=== PATIENT | female | born 1940 | race Caucasian/White ===

== ENCOUNTER 2020-08-19 23:18 | Inpatient (IN) ==
[2020-08-19] MEDS ORDERED: MELATONIN 3 MG TABLET PO PRN (23:24)
[2020-08-19] MEDS ORDERED: POLYETHYLENE GLYCOL 3350 17 GM PACKET PO PRN (23:24)
[2020-08-19] MEDS ORDERED: ACETAMINOPHEN 325 MG TABLET PO PRN (23:24)
[2020-08-19] MEDS ORDERED: ONDANSETRON 4 MG ODT TABLET SL PRN (23:24)
[2020-08-19] MEDS ORDERED: POTASSIUM CHLORIDE 40 MEQ in DEXTROSE 5% IN WATER 500 ML IV PRN (23:24)
[2020-08-19] MEDS ORDERED: DEXTROSE 50% 50 ML VIAL IV PRN (23:24)
[2020-08-19] MEDS ORDERED: ACETAMINOPHEN 650 MG/65 ML BOTTLE IV PRN (23:24)
[2020-08-19] MEDS ORDERED: BISACODYL 10 MG SUPP.RECT PR PRN (23:24)
[2020-08-19] MEDS ORDERED: DEXTROSE 31 GM ORAL.SUSP PO PRN (23:24)
[2020-08-19] MEDS ORDERED: ONDANSETRON 4 MG/2 ML VIAL IV PRN (23:24)
[2020-08-19] MEDS ORDERED: MAGNESIUM SULFATE 2 GM/50 ML BAG IV PRN (23:24)
--- NOTE | 2020-08-19 23:28 | Internal Med History&Physical ---
HPI History of Present Illness Patient information: Note initiated : 08/19/20 at 11:28 pm Service Date, if different from initiated Date: [] Patient: Danyelle Boston a 79 y/o F admitted on for Blood sugar problems. Chief Complaint: Elevated blood sugars History of present illness: Ms. Boston is a 79 year old F with a history of diabetes/recent Covid pneumonia/dementia/HTN status post remdesivir treatment at [facility]. Patient was transferred to residential home at [place] and was found to have elevated blood sugars. Apparently she ran out of Insulin that led to elevated BG. She was evaluated at [facility], work-up was consistent with hyperosmolar diabetic nonketotic state with blood sugars over 700 and calculated serum osmolarity in excess of 350. Patient was started on insulin subsequently hospitalist service at [facility] was consulted due to lack of availability of beds at [facility]. Patient was accepted Received in stable state. Patient has a baseline cognitive dysfunction/dementia. On arrival she is awake but disoriented. Unable to provide any meaningful history. Most history was obtained from review of medical records and from ER physician Dr. Jose Triplett at [facility] Reviewed labs/documentation that was sent along with patient from [place]. Review of systems 10 point review system was attempted but could not performed Past medical history Dementia Recent Covid pneumonia Hypertension DM type II Hyperlipidemia Anxiety disorder Social history Resides at a care facility [place] No history of smoking PFSH PFS Social History smoking status: Unknown if ever smoked MEDS/ALLERGIES Home Medications and Allergies Home Medications Medication Instructions Recorded Confirmed Type Accu-Chek Safe-T-Pro Plus 08/20/20 08/20/20 History Fleet Enema 118 ml TN PRN PRN 08/20/20 08/20/20 History GlucaGen HypoKit 1 mg SUBCUT QIDP PRN 08/20/20 08/20/20 History Levemir U-100 Insulin 35 unit SUBCUT DAILY 08/20/20 08/20/20 History acetaminophen 650 mg PO Q4H PRN 08/20/20 08/20/20 History alum-mag hydroxide-simeth [Maalox 20 ml PO Q4HP PRN 08/20/20 08/20/20 History Advanced] amlodipine 10 mg PO DAILY 08/20/20 08/20/20 History bisacodyl 10 mg TN QDAY PRN 08/20/20 08/20/20 History escitalopram oxalate 20 mg PO DAILY 08/20/20 08/20/20 History insulin lispro [Humalog U-100 See Protocol SUBCUT ACHS #10 ml 08/20/20 Rx Insulin] loperamide [Imodium A-D] 2 mg PO QID PRN 08/20/20 08/20/20 History memantine 10 mg PO BIDCC 08/20/20 08/20/20 History mupirocin 1 applic TOPICAL QIDP PRN 08/20/20 08/20/20 History ramipril [Altace] 10 mg PO QDAY 08/20/20 08/20/20 History simvastatin 10 mg PO HS 08/20/20 08/20/20 History Allergies Allergy/AdvReac Type Severity Reaction Status Date / Time No Known Drug Allergies Allergy Unverified 08/20/20 01:55 EXAM Constitutional Vitals: Incoherent Head normocephalic Oral cavity moist No ear nose discharge Eye movement symmetrical Neck supple no lymphadenopathy S1-S2 occasionally irregular Nonlabored breathing Nondistended nontender abdomen Lower extremity no cyanosis clubbing or joint swelling Skin no suspicious lesion Psych confused and anxious Neuro moving all 4 extremities A/P Narrative A/P Narrative: * Diabetic nonketotic hyperosmolar state with blood sugars over 700. initially treated on insulin bolus/drip at [facility] along with crystalloids. By time patient arrived blood sugars down to 350. Patient will transition to basal prandial insulin/CC diet along with continued crystalloids. * History of hypertension continue midodrine/LORE inhibitor * Volume depletion encourage p.o. fluids. Crystalloids. * Hyperlipidemia continue statin * Anxiety disorder discontinue escitalopram * History of dementia at baseline * Prophylaxis heparin Plan * Inpatient admission * Aggressive blood sugar management * Pre-existing medical mission management as above * delirium watch/dementia care/fall watch * PT OT/nutrition support * Discharge planning Time Spent With Patient Time: Total time spent is greater than 50% in coordination of care (as documented) at patient's floor/unit and/or counseling patient:
[2020-08-19] MEDS ORDERED: 0.9 % SODIUM CHLORIDE 1,000 ML IV SCH (23:30)
[2020-08-20] MEDS: 0.9 % SODIUM CHLORIDE 10 ML SYRINGE IV SCH ×2 (05:48→13:34)
[2020-08-20] MEDS: INSULIN LISPRO 1 UNIT/0.01 ML UNIT SQ SCH ×2 (06:35→10:54)
[2020-08-20] MEDS ORDERED: MAG HYDROX/AL HYDROX/SIMETH 30 ML ORAL.SUSP PO PRN (08:48)
[2020-08-20] MEDS ORDERED: BISACODYL 10 MG SUPP.RECT PR PRN (08:48)
[2020-08-20] MEDS ORDERED: FLEETS ADULT ENEMA PR PRN (08:48)
[2020-08-20] MEDS ORDERED: MUPIROCIN OINT 2% 22GM TOPICAL PRN (08:48)
[2020-08-20] MEDS ORDERED: HEPARIN 5,000 UNIT/ML VIAL SQ SCH (09:00)
[2020-08-20] MEDS ORDERED: ESCITALOPRAM 20 MG TABLET PO SCH (09:00)
[2020-08-20] MEDS ORDERED: MULTIVIT,THER IRON,CA,FA & MIN 1 TABLET PO SCH (09:00)
[2020-08-20] MEDS ORDERED: DOCUSATE SODIUM 100 MG CAPSULE PO SCH (09:00)
[2020-08-20] MEDS ORDERED: sitaGLIPtin 100 MG TABLET PO SCH (09:00)
[2020-08-20] MEDS ORDERED: LISINOPRIL 20 MG TABLET PO SCH (09:00)
[2020-08-20] MEDS ORDERED: INSULIN GLARGINE, HUMAN 1 UNIT/0.01 ML SQ SCH (09:00)
[2020-08-20] MEDS ORDERED: LOPERAMIDE 2 MG CAPSULE PO PRN (09:21)
[2020-08-20] MEDS ORDERED: ACETAMINOPHEN 325 MG TABLET PO PRN (09:22)
[2020-08-20] MEDS ORDERED: GLUCAGON,HUMAN RECOMBINANT 1 MG VIAL IV PRN (09:25)
[2020-08-20 10:37] LABS: Basophils # (Auto) 0.03 K/mcL (0.00-0.20); Basophils % (Auto) 0.3 % (0.0-2.0); Eosinophils # (Auto) 0.15 K/mcL (0.00-0.70); Eosinophils % (Auto) 1.7 % (0.0-7.0); Hematocrit 39.6 % (36.0-48.0); Lymphocytes # (Auto) 1.69 K/mcL (1.50-4.80); Mean Cell Volume 92.1 fL (80.0-100.0); Mean Corpuscular HGB Conc 32.8 g/dL (31.0-36.0); Mean Platelet Volume 11.1 fL (7.4-10.4); Monocytes # (Auto) 0.76 K/mcL (0.10-0.90); Monocytes % (Auto) 8.6 % (1.0-12.0); Neutrophils % (Auto) 70.4 % (38.0-78.0); Platelet Count 252 K/mcL (140-440); Red Cell Distribution Width 13.4 % (11.5-14.5); WBC 8.9 K/mcL (4.5-11.0)
[2020-08-20 10:50] LABS: ALT/SGPT 32 U/L (<40); AST/SGOT 20 U/L (<32); Albumin 2.8 gm/dL (3.2-5.2); Albumin/Globulin Ratio 0.8 (1.0-2.3); Alkaline Phosphatase 113 U/L (39-117); Bilirubin,Direct < 0.2 mg/dL (<0.3); Bilirubin,Total 0.6 mg/dL (0.1-1.0); Blood Urea Nitrogen 44 mg/dL (8-23); Calcium 8.8 mg/dL (8.6-10.4); Carbon Dioxide 20 mmol/L (22-30); Chloride 114 mmol/L (96-108); Globulin 3.6 gm/dL (2.2-3.7); Glomerular Filtration Rate 48; Glucose 159 mg/dL (70-105); Lactate Dehydrogenase 291 U/L (135-225); Phosphorous 3.1 mg/dL (2.5-4.5); Triglycerides 77 mg/dL (<150); Uric Acid 5.5 mg/dL (2.5-8.0)
--- NOTE | 2020-08-20 13:44 | Discharge Summary ---
Discharge Provider Provider Patient information: Note initiated : 08/20/20 at 1:43 pm Service Date, if different from initiated Date: [] Patient: Danyelle Boston 79 y/o F admitted on 08/20/20 for Blood Sugar Problems. Chief Complaint: Weakness/elevated blood sugars Discharge diagnosis Diabetic hyperosmolar nonketotic state -managed per protocol Hospital course- patient demonstrated dramatic improvement over 12 hours with crystalloid/insulin with resultant normalization of biochemical profile/blood sugars. Patient is now at baseline. Discharging back to [facility]. Continue outpatient follow-up with primary care physician/diabetes optimization/sliding- scale insulin CC diet. Date of admission: 08/20/20 00:25 Discharge date: 08/20/20 Primary care physician: Raquel Gordon, Discharge Meds Discharge Medications Home Medications Accu-Chek Safe-T-Pro Plus 08/20/20 [History Confirmed 08/20/20 Last Taken Unknown] Fleet Enema 118 ml ND PRN PRN 08/20/20 [History Confirmed 08/20/20 Last Taken Unknown] GlucaGen HypoKit 1 mg SUBCUT QIDP PRN 08/20/20 [History Confirmed 08/20/20 Last Taken Unknown] Levemir U-100 Insulin 35 unit SUBCUT DAILY 08/20/20 [History Confirmed 08/20/20 Last Taken 08/19/20 09:00] acetaminophen 650 mg PO Q4H PRN 08/20/20 [History Confirmed 08/20/20 Last Taken Unknown] alum-mag hydroxide-simeth [Maalox Advanced] 20 ml PO Q4HP PRN 08/20/20 [History Confirmed 08/20/20 Last Taken Unknown] amlodipine 10 mg PO DAILY 08/20/20 [History Confirmed 08/20/20 Last Taken 08/19/20 09:00] bisacodyl 10 mg ND QDAY PRN 08/20/20 [History Confirmed 08/20/20 Last Taken Unknown] escitalopram oxalate 20 mg PO DAILY 08/20/20 [History Confirmed 08/20/20 Last Taken 08/19/20 09:00] insulin lispro [Humalog U-100 Insulin] See Protocol SUBCUT ACHS #10 ml 08/20/20 [Rx Last Taken Unknown] loperamide [Imodium A-D] 2 mg PO QID PRN 08/20/20 [History Confirmed 08/20/20 Last Taken Unknown] memantine 10 mg PO BIDCC 08/20/20 [History Confirmed 08/20/20 Last Taken 08/19/20 08:00] mupirocin 1 applic TOPICAL QIDP PRN 08/20/20 [History Confirmed 08/20/20 Last Taken Unknown] ramipril [Altace] 10 mg PO QDAY 08/20/20 [History Confirmed 08/20/20 Last Taken 08/19/20 08:00] simvastatin 10 mg PO HS 08/20/20 [History Confirmed 08/20/20 Last Taken 08/18/20] COURSE Hospital Course Hospital course: . Discharge diagnosis: . Time Spent with Patient Time attestation: Total time spent providing and/or coordinating discharge services: EXAM Constitutional Vitals: Temp Pulse Resp BP Pulse Ox 98.9 F 76 16 150/76 98 08/20/20 12:00 08/20/20 12:00 08/20/20 12:00 08/20/20 12:00 08/20/20 12:00 Discharge Data Data Completed and Pending Labs on day of discharge: Labs from last 24 hours 08/20/20 08/20/20 08/20/20 09:49 09:49 09:45 WBC 8.9 RBC 4.30 Hgb 13.0 Hct 39.6 MCV 92.1 MCH 30.2 MCHC 32.8 RDW 13.4 Plt Count 252 MPV 11.1 H Neut % (Auto) 70.4 Lymph % (Auto) 19.0 [place] % (Auto) 8.6 Eos % (Auto) 1.7 Baso % (Auto) 0.3 Lymph # (Auto) 1.69 [place] # (Auto) 0.76 Eos # (Auto) 0.15 Baso # (Auto) 0.03 Seg Neutrophils % Band Neutrophils % Lymphocytes % Absolute Neutrophils 6.25 Reactive Lymphocytes Platelet Estimate RBC Morphology Sodium 145 Potassium 4.5 Chloride 114 H Carbon Dioxide 20 L Anion Gap 11.0 BUN 44 H Creatinine 1.1 GFR Calculation 48 Glucose 159 H Osmolality 323 H Uric Acid 5.5 Calcium 8.8 Phosphorus 3.1 Magnesium 2.1 Total Bilirubin 0.6 Direct Bilirubin < 0.2 GGT 43 H AST 20 ALT 32 Alkaline Phosphatase 113 Lactate Dehydrogenase 291 H Total Protein 6.4 Albumin 2.8 L Globulin 3.6 Albumin/Globulin Ratio 0.8 L Triglycerides 77 08/20/20 08/20/20 05:03 05:03 WBC TNP RBC TNP Hgb TNP Hct TNP MCV TNP MCH TNP MCHC TNP RDW TNP Plt Count TNP MPV TNP Neut % (Auto) Lymph % (Auto) [place] % (Auto) Eos % (Auto) Baso % (Auto) Lymph # (Auto) [place] # (Auto) Eos # (Auto) Baso # (Auto) Seg Neutrophils % TNP Band Neutrophils % TNP Lymphocytes % TNP Absolute Neutrophils Reactive Lymphocytes TNP Platelet Estimate TNP RBC Morphology TNP Sodium TNP Potassium TNP Chloride TNP Carbon Dioxide TNP Anion Gap TNP BUN TNP Creatinine TNP GFR Calculation TNP Glucose TNP Osmolality Uric Acid TNP Calcium TNP Phosphorus TNP Magnesium TNP Total Bilirubin TNP Direct Bilirubin Pending GGT TNP AST TNP ALT TNP Alkaline Phosphatase TNP Lactate Dehydrogenase TNP Total Protein TNP Albumin TNP Globulin TNP Albumin/Globulin Ratio TNP Triglycerides TNP Discharge Plan Patient/Caregiver Discharge Instructions Activity: increase activity as tolerated Diet: Consistent Carbohydrate Activity Restrictions/Additional Instructions: PCP in 5 days Continue sliding-scale insulin/detemir Encourage p.o. fluids Dementia care/fall watch Covid contact cautions Prescriptions: New insulin lispro [Humalog U-100 Insulin] 100 unit/mL Solution See Protocol unit SUBCUT ACHS Qty: 10 RF: 0 Continued amlodipine 5 mg tablet 10 mg PO DAILY RF: 0 (DME) Accu-Chek Safe-T-Pro Plus 23 gauge misc MISCELLANEOUS RF: 0 acetaminophen 325 mg Tablet 650 mg PO Q4H PRN (Reason: pain/fever) RF: 0 loperamide [Imodium A-D] 2 mg Tablet 2 mg PO QID PRN (Reason: Diarrhea) RF: 0 bisacodyl 10 mg Suppository 10 mg ND QDAY PRN (Reason: Constipation) RF: 0 simvastatin 20 mg tablet 10 mg PO HS RF: 0 Fleet Enema 19-7 gram/118 mL Enema 118 ml ND PRN PRN (Reason: Constipation) RF: 0 GlucaGen HypoKit 1 mg Recon Soln 1 mg SUBCUT QIDP PRN (Reason: Hypoglycemia) RF: 0 alum-mag hydroxide-simeth [Maalox Advanced] 200-200-20 mg/5 mL Suspension 20 ml PO Q4HP PRN (Reason: Indigestion) RF: 0 escitalopram oxalate 20 mg tablet 20 mg PO DAILY RF: 0 memantine 10 mg tablet 10 mg PO BIDCC RF: 0 Levemir U-100 Insulin 100 unit/mL solution 35 unit SUBCUT DAILY RF: 0 mupirocin 2 % Ointment 1 applic TOPICAL QIDP PRN (Reason: Wound Care) RF: 0 ramipril [Altace] 10 mg capsule 10 mg PO QDAY RF: 0 Follow Up Plan Patient Disposition: Xfer SNF Rehab Potential: Fair I certify that the patient requires SNF services: Yes Overall status at discharge: patient is progressing back to baseline Discharge Orders: Discharge Order (Routine); Ordered 08/20/20 Ordered By: Wes Gonzalez
[2020-08-20] MEDS ORDERED: MEMANTINE 10 MG TABLET PO SCH (17:30)
[2020-08-20] MEDS ORDERED: SENNOSIDES/DOCUSATE SODIUM 1 TAB TABLET PO SCH (21:00)
[2020-08-20] MEDS ORDERED: SIMVASTATIN 10 MG TABLET PO SCH (21:00)
[2020-08-21] MEDS ORDERED: amLODIPine 10 MG TABLET PO SCH (09:00)
== END 2020-08-20 15:00 | DRG 639 ==
LOC: MEDSUR 08-20 00:25
PROVIDERS: ADMIT Internal Medicine; ATTEND Internal Medicine